=== PATIENT | female | born 1980 | race Two or more races ===

== ENCOUNTER 2023-01-24 03:06 | Emergency (ER) | payer SELFPAY ==
[~2023-01-24] VITALS: Ht 165.1 cm; Wt 77.0 kg
[2023-01-24 03:10] VITALS: BP 108/61; PULSE 70; RESP 22; O2SAT 99
[2023-01-24 03:43] LABS: Basophils # (auto) 0 10 ^3/uL (0-0.2); Basophils % (auto) 0.4 % (0.0-2.0); Eosinophils # (auto) 0.2 10 ^3/uL (0-0.8); Eosinophils % (auto) 2.6 % (0.0-7.0); Hematocrit 34.9 % (36.0-46.0); Hemoglobin 11.8 g/dL (12.2-16.2); Lymphocytes # (auto) 3.7 10 ^3/uL (0.4-5.4); Lymphocytes % (auto) 43.1 % (10.0-50.0); Mean Corpuscular Hgb Conc. 33.6 g/dL (32.0-36.0); Mean Corpuscular Volume 86.2 fL (80.0-100.0); Monocytes # (auto) 0.5 10 ^3/uL (0-1.3); Neutrophils # (auto) 4.1 10 ^3/uL (1.6-8.6); Neutrophils % (auto) 47.9 % (37.0-80.0); Red Blood Cells 4.05 10^6/uL (4.0-5.20); Red Cell Distribution Width 13.6 % (11.8-14.3); White Blood Cell 8.5 10^3/uL (4.4-10.8)
[2023-01-24 04:47] LABS: Alanine Aminotransferase 33 U/L (7-40); Albumin 4.1 g/dL (3.2-4.8); Alkaline Phosphatase 90 U/L (46-116); Anion Gap 9 (5-15); Aspartate Aminotransferase 50 U/L (13-40); BUN/Creatinine Ratio 17.1 (10.0-20.0); Blood Urea Nitrogen 13 mg/dL (9-23); Calcium 8.9 mg/dL (8.5-10.1); Carbon Dioxide 25 mmol/L (20-30); Chloride 107 mmol/L (98-107); Glucose 141 mg/dL (74-106); Potassium 3.4 mmol/L (3.5-5.1); Sodium 141 mmol/L (136-145)
[2023-01-24 04:48] LABS: Urine Bacteria NONE SEEN /hpf (None Seen); Urine Blood Negative /uL (Negative); Urine Clarity HAZY (Clear); Urine Color Yellow (Yellow); Urine Mucus FEW (None Seen); Urine Protein, UAD TRACE (Negative); Urine Urobilinogen Normal (Negative); Urine WBC 4 /hpf (0 - 5)
[2023-01-24 04:48] LABS: Bilirubin, Total 0.5 mg/dL (0.2-1.0); Total Protein 7.3 g/dL (5.7-8.2)
[2023-01-24] MEDS ORDERED: ONDANSETRON ODT 4 MG TAB PO ONE (05:00)
[2023-01-24] MEDS ORDERED: HYDROcodone-ACET 10/325MG TAB PO ONE (05:00)
[2023-01-24 06:28] LABS: Lipase 44 U/L (12-53)
== END 2023-01-24 05:40 | disposition left against medical advice (07) ==
LOC: ER 03:10
DX: R10.9 Unspecified abdominal pain (principal); R11.2 Nausea with vomiting, unspecified; Z53.21 Procedure and treatment not carried out due to patient leaving prior to being seen by health care provider
CPT/HCPCS: 36415; 80053; 81001; 83690; 85025